=== PATIENT | male | born 1990 | race Caucasian/White ===

== ENCOUNTER 2016-05-27 22:52 | Emergency (ER) | payer BC ==
--- NOTE | ~2016-05-27 | CT4 ---
[facility] A Service of [facility] RADIOLOGY TEXT RESULTS PATIENT: HARLEY CAMARENA JR LOCATION: SED : 90 UNIT #: [id number] AGE: [address]: Mohan Rqoue SEX: M ORDER DR: [id number] [address] [address] [id number] MR#: [id number] Acc #: [id number] NAME: HARLEY CAMARENA JR : 1990 SEX: M STUDY DATE/TIME: 05/27/2016 23:39 UNIT: SED ROOM: STUDY DESCRIPTION: CT Abd and Pelv Wo Cont Attending Physician: Mohan Roque P.A.-C. Ordering Physician: Mohan Roque P.A.-C. Primary Care Physician: Primary Care Physician No MEDICAL IMAGING REPORT This report is preliminary unless electronic signature is present. EXAM CT abdomen and pelvis without IV contrast COMPARISON None. INDICATION 26-year-old male with left flank and back pain for 1 week. Associated nausea and emesis. TECHNIQUE This CT examination was performed with one or more of the following radiation dose reduction techniques: automatic exposure control, adjustment of mA and/or kV according to patient size, and iterative reconstruction. FINDINGS Axial CT imaging of the abdomen and pelvis was performed without IV contrast. Lack of IV contrast limits evaluation of adenopathy, vasculature and viscera. Benign bone islands in the femoral heads and right iliac bone. No acute fractures or suspicious osseous lesions. Lower chest is within normal limits. Unenhanced liver, gallbladder, pancreas, spleen, adrenal glands and right kidney are unremarkable. There is [id number] left hydronephrosis and proximal left hydroureter due to an obstructing calculus in the proximal left ureter measuring up to 8 mm. There is a single nonobstructive inferior pole calculus of the left kidney measuring up to approximately 3 mm. There appears to be a separate calculus in the inferior left ureter measuring up to 2 mm. This could conceivably represent a gonadal phlebolith but is favored to be within the ureter. [facility] A Service of [facility] RADIOLOGY TEXT RESULTS PATIENT: HARLEY CAMARENA JR LOCATION: SED : 90 UNIT #: [id number] AGE: [address]: Mohan Roque SEX: M ORDER DR: Urinary bladder is within normal limits. Prostate gland is unremarkable. No right-sided ureteral calculi. Moderate colonic stool burden. Normal appendix. No free fluid or pneumoperitoneum. Normal caliber of the abdominal aorta. No adenopathy. IMPRESSION Moderate left hydronephrosis and proximal left hydroureter due to an obstructing 8 mm calculus in the proximal left ureter. There is also a 4 mm nonobstructive left renal calculus. In the pelvis, there is a 2 mm calculus which is also favored to be within the distal left ureter. Conceivably, this could represent a gonadal phlebolith but is likely in the distal left ureter. No right-sided renal or ureteral calculi. Dictated by... Thony Amador M.D. THIS IS AN ELECTRONICALLY VERIFIED REPORT Thony Amador M.D. at 06/03/2016 9:58 AM MATTHEW/jhoana TD: 05/28/2016 06:58 JOB #: [id number] MEDICAL IMAGING REPORT
[2016-05-27 22:58] LABS: BASOPHIL% 0.4 % (0-2.5); EOSINOPHIL# 0.1 X10e3 (0-0.7); EOSINOPHIL% 0.5 % (0.0-7.0); HEMATOCRIT 45.6 % (38.0-50.0); HEMOGLOBIN 15.8 gm/dL (13.0-16.0); LYMPHOCYTE# 1.2 X10e3 (1.0-3.5); LYMPHOCYTE% 11.5 % (17.0-45.0); MEAN CELL VOLUME 82.6 FL (83-96); MEAN CORPUSCULAR HEMOGLOBIN 28.7 PG (28-34); MEAN CORPUSCULAR HGB CONC 34.7 g/dL (30-36); MEAN PLATELET VOLUME 7.5 FL (6.5-11.5); MONOCYTE% 9.3 % (3.0-12.0); NEUTROPHIL# 8.3 X10e3 (1.5-7.1); NEUTROPHIL% 78.3 % (40-75); PLATELET COUNT 296 X10e3 (140-420); RED BLOOD COUNT 5.52 X10e (3.90-5.60); RED CELL DISTRIBUTION WIDTH 12.8 % (11.0-15.5); WHITE BLOOD COUNT 10.7 X10e3 (4.0-10.5)
[2016-05-27 23:03] LABS: DIFF IND NO
[2016-05-27 23:05] LABS: URINE SOURCE CLEAN CATCH
[2016-05-27 23:08] LABS: URINE APPEARANCE HAZY; URINE BILIRUBIN NEG (NEG); URINE BLOOD 3+ (NEG); URINE COLOR YELLOW; URINE GLUCOSE NEG (NORM); URINE KETONE TRACE (NEG); URINE LEUKOCYTE ESTERASE NEG (NEG); URINE NITRATE NEG (NEG); URINE PROTEIN TRACE (NEG); URINE SPECIFIC GRAVITY 1.015 (1.003-1.035)
[2016-05-27 23:10] LABS: MICRO INDICATED? YES
[2016-05-27 23:17] LABS: ALBUMIN SERUM 4.8 g/dL (3.5-5.0); ALKALINE PHOSPHATASE 73 U/L (32-92); ALT (SGPT) 24 U/L (10-40); AST (SGOT) 26 U/L (10-42); BILIRUBIN, DIRECT 0.2 mg/dL (0.0-0.2); BILIRUBIN,INDIRECT 0.7 mg/dL (0.0-0.9); BILIRUBIN,TOTAL 0.9 mg/dL (0.2-2.0); BLOOD UREA NITROGEN 13 mg/dL (9-23); CALCIUM SERUM 9.3 mg/dL (8.4-10.2); CARBON DIOXIDE 28 mmol/L (22-31); CHLORIDE 99 mmol/L (100-111); GLOM FILT RATE Estimated ABOVE60 mL/min (>60); GLUCOSE FASTING 96 mg/dL (70-110); POTASSIUM 3.3 mmol/L (3.5-5.1); PROTEIN TOTAL SERUM 7.8 g/dL (6.0-8.3); SODIUM 136 mmol/L (135-145)
[2016-05-27 23:18] LABS: CULTURE INDICATED? NO; URINE BACTERIA NEG (NEG); URINE MUCUS PRESENT; URINE RBC INNUM /[HPF] (0-2); URINE SQUAMOUS EPITHELIAL CELL OCCAS /[HPF]; URINE TRANSITIONAL EPI CELLS FEW /[HPF]
== END 2016-05-28 02:34 | disposition home or self-care (01) ==
LOC: SED 22:52
PROVIDERS: Physician Assistant
DX: N13.2 Hydronephrosis with renal and ureteral calculous obstruction (principal)
CPT/HCPCS: 36415; 74176; 80048; 80076; 81003; 85025; 96361; 96374; 96375; 99284; J1885; J2405